=== PATIENT | female | born 1965 | race Caucasian/White ===

== ENCOUNTER → 2017-01-26 | Outpatient (CLI) | payer OTHER ==
[~2017-01-26] MED LIST: AMIO400T2 PO; AMOX875T PO; ASPI81CH37 CHEW; ASPI81TA45 PO; CARV3.125 PO; CORE6.25 PO; FERR324T4 PO; FLUT1SPR5 EACH NARE; LIPI10TA PO; LORTA5 PO; OMEP20TA39 PO; TAB-TAB PO; TRAM50TA PO; WARF2.5T40 PO
== END ==
LOC: CLAB 06:57
PROVIDERS: ATTEND Surgery
DX: Z98.84 Bariatric surgery status (principal)
CPT/HCPCS: 36415; 82652

== ENCOUNTER 2017-02-24 08:19 | Emergency (ER) | payer OTHER ==
[~2017-02-24] VITALS: Ht 152.4 cm; Wt 60.0 kg
[~2017-02-24 08:19] MED LIST changes: -AMOX875T PO; -ASPI81CH37 CHEW; -CARV3.125 PO; -FLUT1SPR5 EACH NARE
[2017-02-24 08:28] VITALS: BP 134/89; PULSE 89; RESP 17; TEMP 98.1; O2SAT 99
--- NOTE | 2017-02-24 08:28 | PD ---
HPI Chief Complaint: ENT Complaint Time Seen by Provider: 08:28 Travel History International Travel<30 days: No Contact w/Intl Traveler<30days: No Traveled to known affect area: No History of Present Illness HPI 51-year-old female presents the emergency Department with pain and decreased hearing in the left ear. Patient also has sinus congestion. She denies fever, sore throat, cough, or other constitutional symptoms. Patient states she's been congested for the last several days but symptoms worsened since yesterday. Patient states she feels "like she is drowning". There's been no drainage from the ear. Pain is a 3 out of 10. She has no known drug allergies. PFSH Past Medical History Arthritis: No Asthma: No Blood Disorders: No Heart Rhythm Problems: No Cancer: No Cardiovascular Problems: Yes (MITRAL VALVE PROLAPSE) High Cholesterol: Yes Chest Pain: No Congestive Heart Failure: Yes COPD: No Cerebrovascular Accident: No Diabetes: No Endocrine: No Gastrointestinal Disorders: Yes (GALLSTONES) GERD: Yes (GERD) Genitourinary: No Headaches: No Hepatitis: No Hiatal Hernia: No Hypertension: Yes Immune Disorder: No Kidney Stones: No Musculoskeletal: No Neurologic: No Psychiatric: No Reproductive: No Respiratory: No Migraines: No Myocardial Infarction: No Renal Failure: No Seizures: No Sleep Apnea: No Thyroid Disease: No Ulcer: No ?: Not Past Surgical History Abdominal Surgery: Yes (GASTRIC BYPASS) AICD: No Appendectomy: No Cardiac Surgery: Yes (CARDIAC CATH 10/23) Section: Yes (X2) Cholecystectomy: No Ear Surgery: No Endocrine Surgery: No Eye Surgery: No Genitourinary Surgery: No Gynecologic Surgery: Yes () Hysterectomy: Yes Joint Replacement: No Oral Surgery: Yes (TONSILLECTOMY) Pacemaker: No Thoracic Surgery: No Tonsillectomy: Yes Other Surgery: Yes Social History Alcohol Use: No Tobacco Use: No Substance Use: No Allergies-Medications (Allergen,Severity, Reaction): Coded Allergies: No Known Allergies (Verified , 10/23/14) Reported Meds & Prescriptions Reported Meds & Active Scripts Active Reported Warfarin Sodium 2.5 mg (Warfarin Sodium) 2.5 Mg Tab 2.5 Mg PO DAILY Amiodarone Hcl (Amiodarone HCl) 400 Mg Tab 400 Mg PO BID Lipitor 10 Mg Tab (Atorvastatin Calcium) 10 Mg Tab 1 Tab PO DAILY Ferrous Sulfate 325 Mg Tab 325 Mg PO TID [place] 5/325 (Hydrocodone/Acetaminophen 5/325) 5 mg/325 mg Tab 1 Tab PO Q6H PRN Tramadol Hcl (Tramadol HCl) 50 Mg Tab 50 Mg PO Q8 PRN Aspirin 81 mg EC Lo-Dose (Aspirin) 81 Mg Tab 81 Mg PO DAILY Hm Omeprazole (Omeprazole) 20 Mg Tab 20 Mg PO DAILY Multivitamin (Multivitamins) 1 Tab Tab 1 Tab PO DAILY Coreg (Carvedilol) 6.25 Mg Tab 6.25 Mg PO BID Review of Systems Except as stated in HPI: all other systems reviewed are Neg General / Constitutional: No: Fever Eyes: No: Visual changes HENT: Positive: Congestion, Earache, No: Headaches, Vertigo, Lightheadedness, Sore Throat, Rhinitis, Rhinorrhea, Nosebleed, Neck Stiffness, Neck Pain, Ear Discharge Cardiovascular: No: Chest Pain or Discomfort Respiratory: No: Shortness of Breath Gastrointestinal: No: Abdominal Pain Genitourinary: No: Dysuria Musculoskeletal: No: Pain Skin: No Rash Neurologic: No: Weakness Psychiatric: No: Depression Endocrine: No: Polydipsia Hematologic/Lymphatic: No: Easy Bruising Physical Exam Narrative GENERAL: Patient appears distress. SKIN: Warm and dry. Normal color. Normal turgor. No rash. HEAD: Atraumatic. Normocephalic. EYES: Pupils equal and round. No scleral icterus. No injection or drainage. ENT: No nasal bleeding or discharge. Mucous membranes pink and moist. Patient has mild sinus tenderness with percussion on the left maxillary sinus. Left TM is dull, with serous fluid behind it with some bulging noted. No significant erythema, but landmarks are not visible. Right TM is somewhat dull but otherwise normal. Pharynx is clear without significant erythema or postnasal drip noted. NECK: Trachea midline. Supple nontender without significant lymphadenopathy. CARDIOVASCULAR: Regular rate and rhythm. RESPIRATORY: No accessory muscle use. Clear to auscultation. Breath sounds equal bilaterally. MUSCULOSKELETAL: Extremities without clubbing, cyanosis, or edema. No obvious deformities. NEUROLOGICAL: Awake and alert. No obvious cranial nerve deficits. Motor grossly within normal limits. Five out of 5 muscle strength in the arms and legs. Normal speech. PSYCHIATRIC: Appropriate mood and affect; insight and judgment normal. MDM Medical Decision Making Medical Screen Exam Complete: Yes Emergency Medical Condition: Yes Differential Diagnosis Serous otitis. Otitis externa. Sinusitis. Postnasal drip. Narrative Course Patient is medically stable at time of exam. Patient will be treated for serous otitis with amoxicillin 875 twice a day 10 days. Patient is also given Flonase nasal spray 2 sprays each nostril daily. Patient can continue [id number] antihistamines and decongestants as needed. Patient follow up if symptoms worsen or do not improve in the next week. Diagnosis Primary Impression: Acute serous otitis media of left ear without rupture Additional Impression: Sinusitis Qualified Code: J01.00 - Acute non-recurrent maxillary sinusitis Referrals: Primary Care Physician Patient Instructions: General Instructions, Serous Otitis Media (ED), Sinusitis (ED) Additional Instructions: Patient will be treated for serous otitis with amoxicillin 875 twice a day 10 days. Patient is also given Flonase nasal spray 2 sprays each nostril daily. Patient can continue [id number] antihistamines and decongestants as needed. Patient follow up if symptoms worsen or do not improve in the next week. Med/Other Pt SpecificInfo: Prescription(s) given Disposition: 01 DISCHARGE HOME Condition: Stable Chito Pillai Feb 24, 2017 08:28
[2017-02-24] MEDS ORDERED: AMOX875T PO (08:37)
[2017-02-24] MEDS ORDERED: FLUT1SPR5 EACH NARE ×2 (08:37→08:40)
[2017-02-24] MEDS ORDERED: ASPI81CH37 CHEW (08:48)
[2017-02-24] MEDS ORDERED: CARV3.125 PO (08:48)
== END 2017-02-24 08:53 | disposition home or self-care (01) ==
LOC: NEPK 08:19
DX: H65.02 Acute serous otitis media, left ear (principal); J32.9 Chronic sinusitis, unspecified; I10 Essential (primary) hypertension
CPT/HCPCS: 99284

== ENCOUNTER → 2017-11-01 | Outpatient (CLI) | payer OTHER ==
[~2017-11-01] MED LIST changes: -AMIO400T2 PO; +AMOX875T PO; +ASPI81CH6 CHEW; -ASPI81TA45 PO; +CARV3.125 PO; -CORE6.25 PO; -FERR324T4 PO; +FLUT1SPR5 EACH NARE; -LIPI10TA PO; -LORTA5 PO; -OMEP20TA39 PO; -TAB-TAB PO; -TRAM50TA PO; -WARF2.5T40 PO
[2017-11-01 07:23] LABS: AUTOMATED NEUTROPHIL # 2.4 TH/MM3 (1.8-7.7); BASOPHIL % 0.9 % (0.0-2.0); EOSINOPHIL # 0.2 TH/MM3 (0-0.4); HEMATOCRIT 34.5 % (35.0-46.0); HEMOGLOBIN 11.8 GM/DL (11.6-15.3); LYMPH % 33.3 % (9.0-44.0); LYMPHOCYTE # 1.5 TH/MM3 (1.0-4.8); MEAN CELL VOLUME 86.2 FL (80.0-100.0); MEAN CORPUSCULAR HEMOGLOBIN 29.3 PG (27.0-34.0); MEAN PLATELET VOLUME 7.6 FL (7.0-11.0); MONO % 8.8 % (0.0-8.0); MONOCYTE # 0.4 TH/MM3 (0-0.9); PLATELET COUNT 355 TH/MM3 (150-450); RED BLOOD COUNT 4.01 MIL/MM3 (4.00-5.30); RED CELL DISTRIBUTION WIDTH 13.8 % (11.6-17.2); WHITE BLOOD COUNT 4.6 TH/MM3 (4.0-11.0)
[2017-11-01 07:48] LABS: ALBUMIN 3.8 GM/DL (3.4-5.0); AST (GOT) 20 U/L (15-37); BICARBONATE 26.7 MEQ/L (21.0-32.0); BLOOD UREA NITROGEN 23 MG/DL (7-18); CHLORIDE 105 MEQ/L (98-107); CHOLESTEROL 197 MG/DL (120-200); GLOMERULAR FILTRATION RATE 106 ML/MIN (>89); GLUCOSE,FASTING 91 MG/DL (74-99); MAGNESIUM 2.2 MG/DL (1.5-2.5); SODIUM (NA) 136 MEQ/L (136-145); TRIGLYCERIDES 97 MG/DL (42-150)
[2017-11-01 08:14] LABS: ALKALINE PHOSPHATASE 113 U/L (45-117); ALT (GPT) 22 U/L (10-53); FERRITIN 6 NG/ML (8-252); FOLATE 10.9 NG/ML (3.1-17.5); FREE T3 2.56 PG/ML (2.18-3.98); FREE T4 0.76 NG/DL (0.76-1.46); HDL CHOLESTEROL 85.6 MG/DL (40.0-60.0); IRON (FE) 70 MCG/DL (50-170); LDL CHOLESTEROL 92 MG/DL (0-99); PHOSPHORUS 3.5 MG/DL (2.5-4.9); TOTAL BILIRUBIN ADULT 0.6 MG/DL (0.2-1.0); TOTAL IRON BINDING CAPACITY 636 MCG/DL (250-450); TOTAL PROTEIN 7.9 GM/DL (6.4-8.2)
== END ==
LOC: CLAB 06:49
PROVIDERS: ATTEND Nurse Practitioner
DX: E67.3 Hypervitaminosis D (principal); I10 Essential (primary) hypertension; R63.4 Abnormal weight loss; E66.3 Overweight; Z98.84 Bariatric surgery status
CPT/HCPCS: 36415; 80053; 80061; 82306; 82607; 82728; 82746; 83540; 83550; 83735; 83970; 84100; 84439; 84443; 84481; 84590; 85025